=== PATIENT | female | born 1975 | race Caucasian/White ===

== ENCOUNTER 2016-10-24 23:30 | Emergency (ER) | payer BC ==
[~2016-10-24 23:30] MED LIST: ACETAMINOPHEN PO; ADVAIR 1001 DISK W/D PO; ALBUTEROL17 G1 IH; ALBUTEROL17 G1 INH; ALBUTEROL17 GM INH; AZITHROMYCIN1 GM PO; BACTRIM DS TABL1 TA1 PO; BENADRYL PO; BENZONATATE PO; CLOBETASOL PROP30 GM EXT; DIPHENHYDRAMINE50 MG PO; EPIPEN0.3 MG/0.1 IM; FIORICET 50-321 EACH PO; FLONASE 0.05% N16 G1; LEVAQUIN PO; PEPCID PO; PERCOCET 7.5/321 TAB PO; PREDNISONE PO; PRILOSEC20 M1 PO; TRIDESILON 0.0515 GM EXT; TUSSIONEX PENN473 ML PO; TYLENOL325 M1 PO; ZITHROMAX PO; ZITHROMAX1 G/PKT PO; ZOFRAN ODT4 MG PO; ZOFRAN PO
[2016-10-24] MEDS ORDERED: ADVAIR 100-501 EAC1 INH (23:41)
[2016-10-24] MEDS ORDERED: CLARITIN10 M3 PO (23:41)
== END 2016-10-25 02:48 | disposition home or self-care (01) ==
LOC: SED 23:30
DX: G43.909 Migraine, unspecified, not intractable, without status migrainosus (principal); J45.909 Unspecified asthma, uncomplicated
CPT/HCPCS: 36415; 87651; 96361; 96374; 96375; 99284; J0780; J1200; J1885; J2405